=== PATIENT | female | born 1945 | race Caucasian/White ===

== ENCOUNTER 2022-10-12 08:35 | Outpatient (CLI) | payer MEDICARE, OTHER | END 2022-10-12 08:36 | disposition home or self-care (01) | LOC: CSHCT 08:35 | PROVIDERS: ATTEND Internal Medicine | DX: K74.60 Unspecified cirrhosis of liver (principal); I85.10 Secondary esophageal varices without bleeding; K44.9 Diaphragmatic hernia without obstruction or gangrene; R16.1 Splenomegaly, not elsewhere classified | CPT/HCPCS: 74170; 82565 ==

== ENCOUNTER 2023-10-04 13:13 | Outpatient (CLI) | payer MEDICARE, OTHER ==
[2023-10-04] MEDS ORDERED: Iopamidol 300 61% 100 ML VIAL FS ONE (14:43)
== END 2023-10-04 13:14 | disposition home or self-care (01) ==
LOC: CSHCT 13:13
PROVIDERS: ATTEND Family Medicine
DX: R31.9 Hematuria, unspecified (principal); K75.81 Nonalcoholic steatohepatitis (NASH); K74.60 Unspecified cirrhosis of liver; K76.6 Portal hypertension; R18.8 Other ascites
CPT/HCPCS: 74177; 82565; Q9967